=== PATIENT | male | born 1970 | race Caucasian/White ===

== ENCOUNTER → 2017-03-05 | Outpatient (CLI) | payer BC, OTHER | END | disposition home or self-care (01) | LOC: C.RDSM 09:30 | PROVIDERS: ATTEND Physical Medicine & Rehabilitation Sports Medicine | DX: M25.511 Pain in right shoulder (principal) ==

== ENCOUNTER → 2017-04-20 | Outpatient (CLI) | payer OTHER ==
[~2017-04-20] MED LIST: GADAVIST IV PRN
--- NOTE | 2017-04-20 10:27 | DIAGNOSTIC IMAGING REPORT ---
FLUOROSCOPICALLY GUIDED RIGHT SHOULDER GADOLINIUM ARTHROGRAM PRE-MRI CLINICAL HISTORY: RIGHT SHOULDER PAIN COMPARISON STUDY: No previous studies for comparison. FINDINGS: A timeout was performed. The risks the procedure were explained the patient informed consent was obtained. The patient was prepped and draped in sterile fashion. The skin was anesthetized 1% lidocaine. 23 seconds of fluoroscopic time was utilized. A single fluoroscopic spot image was acquired. Under fluoroscopic guidance, a 22-gauge spinal needle was introduced into the joint capsule. A mixture of Optiray 300 and gadolinium was instilled into the joint capsule under fluoroscopic guidance. The fluoroscopic spot image documents intra-articular location of the contrast IMPRESSION: Successful fluoroscopically guided right shoulder arthrogram pre-MRI Electronically signed by: Evert Castellanos M.D. 04/20/2017 10:26 AM Dictated Date/Time: 04/20/2017 10:24 AM
--- NOTE | 2017-04-20 10:48 | DIAGNOSTIC IMAGING REPORT ---
ADDENDUM Technique should read as follows: Multiplanar, multi sequence MRI of the right shoulder was performed following the intra-articular administration of contrast containing Gadavist. Electronically signed by: Milton Rivera M.D. 04/20/2017 12:34 PM Dictated Date/Time: 04/20/2017 12:33 PM ORIGINAL REPORT R UPPER EXT JOINT WITH CLINICAL HISTORY: 47 years-old Male with RIGHT SHOULDER PAIN. Acute right shoulder pain status post fall. Limited range of motion. COMPARISON: Right shoulder radiographs 03/05/2017 TECHNIQUE: Multiplanar, multi sequence MRI of the right shoulder was performed without intravenous contrast. FINDINGS: ROTATOR CUFF: The tendons of the rotator cuff including the supraspinatus, infraspinatus, teres minor and subcapularis are intact. There is mild tendinosis of the supraspinatus and infraspinatus. The rotator cuff musculature is normal in morphology and signal. BICEPS TENDON: Tear of the labrum as below extends into the anchor of the long head biceps tendon. The biceps rosendo is intact. LABRUM: There is a tear of the labrum extending superiorly posterior extending into the long head biceps anchor. The inferior labrum appears intact. Mild edema is noted adjacent to the superior labrum. There is no evidence for a paralabral cyst. GLENOHUMERAL JOINT: The articular cartilage overlying the glenoid fossa is normal. There is no large glenohumeral joint effusion. There is no loose body or debris present within the glenohumeral joint. ACROMIOCLAVICULAR JOINT: Mild degenerative changes of the AC joint. No evidence of os acromiale. No subacromial/subdeltoid bursitis. OUTLET SPACES: The suprascapular notch and quadrilateral space are without obstructing or space occupying lesions. BONE MARROW: No focal abnormality, fracture or marrow occupying lesion. Subcortical cystic changes are noted involving the humeral head. SOFT TISSUES: The periarticular soft tissues are unremarkable. IMPRESSION: 1. Acute appearing SLAP tear extends into the long head biceps tendon anchor. The remainder of the long head biceps tendon appears intact. 2. Mild supraspinatus and infraspinous tendinosis without rotator cuff tear identified. 3. Mild degenerative changes of the AC joint. The above report was generated using voice recognition software. It may contain grammatical, syntax or spelling errors. Electronically signed by: Milton Rivera M.D. 04/20/2017 10:47 AM Dictated Date/Time: 04/20/2017 10:36 AM
== END | disposition home or self-care (01) ==
LOC: C.MRIBC 09:24
PROVIDERS: ATTEND Physical Medicine & Rehabilitation Sports Medicine
DX: S43.401A Unspecified sprain of right shoulder joint, initial encounter (principal); X58.XXXA Exposure to other specified factors, initial encounter; M25.511 Pain in right shoulder